=== PATIENT | male | born 1950 | race Caucasian/White ===

== ENCOUNTER 2022-05-10 11:48 | Inpatient (IN) ==
[2022-05-10 12:21] LABS: Basophils % 0.4 % (0.0-0.8); Eosinophils # 0.1 10*3/uL (0.0-0.87); Eosinophils % 1.2 % (0.00-10.9); Hematocrit 48.4 VOL% (42.0-52.0); Immature Granulocytes % 0.1 %; Immature Granulocytes Absolute 0.01 #; Lymphocytes # 1.6 10*3/uL (1.4-4.0); Lymphocytes % 21.7 % (21.2-54.2); Mean Corpuscular HGB Conc 33.1 GM/DL (32-36); Mean Corpuscular Volume 88.3 FL (87-102); Mean Platelet Volume 10.7 FL (9.6-12.0); Monocytes # 0.7 10*3/uL (0.11-0.8); Monocytes % 9.4 % (1.7-12.7); Neutrophils % 67.2 % (38.7-73.9); Platelet Count 207 T/CUMM (130-400); Red Blood Count 5.48 MC/CUMM (3.8-5.5); White Blood Count 7.2 T/CUMM (4-12)
[2022-05-10 13:02] LABS: Albumin 4.2 G/DL (3.4-5.0); Bilirubin,Total 0.8 MG/DL (0.20-1.00); Calcium 9.1 MG/DL (8.5-10.1); Osmolality,Calculated 283.3 MOS/KG (273-304); Potassium 4.1 MMOL/L (3.5-5.1); Total Protein 6.9 G/DL (6.4-8.2)
[2022-05-10] MEDS ORDERED: ENOXAPARIN 80 MG/0.8 ML SYRINGE SUBCUT STA (14:23)
[2022-05-10] MEDS ORDERED: ASPIRIN CHEW 81 MG TABLET PO STA (15:14)
[2022-05-10] MEDS ORDERED: MORPHINE 2 MG/1 ML SYRINGE IV PRN (15:15)
[2022-05-10] MEDS ORDERED: NITROGLYCERIN SL 0.4 MG TABLET SL PRN (15:15)
[2022-05-10] MEDS ORDERED: ASPIRIN 325 MG TABLET ONE (15:15)
[2022-05-10] MEDS ORDERED: DEXTROSE 10% 250 ML BAG IV PRN (15:15)
[2022-05-10] MEDS ORDERED: GLUCAGON 1 MG VIAL IM PRN (15:15)
[2022-05-10] MEDS ORDERED: ACETAMINOPHEN 325 MG TABLET PO PRN (15:15)
[2022-05-10] MEDS ORDERED: LACTATED RINGERS 1,000 ML IV SCH (15:30)
[2022-05-10] MEDS ORDERED: METOPROLOL TARTRATE 25 MG TABLET PO STA (16:19)
[2022-05-10] MEDS ORDERED: DIAZEPAM 5 MG TABLET PO ONE ×2 (16:20→20:00)
[2022-05-10] MEDS ORDERED: diphenhydrAMINE CAP 50 MG CAPSULE PO ONE (16:20)
[2022-05-10] MEDS ORDERED: MAGNESIUM SULF RIDER 2 GM/50 ML PREMIX IV PRN (16:20)
[2022-05-10] MEDS ORDERED: POTASSIUM CHLORIDE RIDER 10 MEQ/100 ML PREMIX IV PRN (16:20)
[2022-05-10] MEDS ORDERED: ROSUVASTATIN 20 MG TABLET PO SCH (16:30)
[2022-05-10 16:47] LABS: Barbiturates Screen,Urine Negative (Negative); Benzodiazepines Screen,Urine Negative (Negative); Cannabinoid Screen,Urine Negative (Negative); Opiate Screen,Urine Negative (Negative); Phencyclidine Screen,Urine Negative (Negative)
[2022-05-10] MEDS: SODIUM CHLORIDE 0.9% 1,000 ML IV SCH (17:04)
[2022-05-10 19:50] VITALS: BP 138/73
[2022-05-10] MEDS ORDERED: diphenhydrAMINE CAP 25 MG CAPSULE PO ONE (20:00)
[2022-05-10] MEDS ORDERED: fentaNYL 100 MCG/2 ML VIAL ONE (20:33)
[2022-05-10] MEDS ORDERED: MIDAZOLAM 2 MG/2 ML VIAL ONE ×2 (20:33→21:04)
[2022-05-10] MEDS ORDERED: VERAPAMIL 5 MG/2 ML VIAL ONE (20:35)
[2022-05-10] MEDS ORDERED: HEPARIN/NACL 0.9% 2 UNITS/ML 2,000 UNIT/1,000 ML BAG IV ONE (20:35)
[2022-05-10] MEDS ORDERED: NITROGLYCERIN DRIP 50 MG/250 ML BOTTLE IV ONE (20:35)
[2022-05-10] MEDS ORDERED: ZALEPLON 5 MG CAPSULE PO PRN (21:30)
[2022-05-10] MEDS ORDERED: ONDANSETRON 4 MG/2 ML VIAL IV PRN (21:30)
[2022-05-10] MEDS: METOPROLOL TARTRATE 25 MG TABLET PO SCH (22:16)
[2022-05-11] MEDS: ENOXAPARIN 100 MG/ML SYRINGE SUBCUT SCH ×2 (02:33→14:24)
[2022-05-11 03:49] LABS: Basophils % 0.5 % (0.0-0.8); Eosinophils # 0.1 10*3/uL (0.0-0.87); Hematocrit 47.4 VOL% (42.0-52.0); Hemoglobin 15.6 GM/DL (14.0-18.0); Immature Granulocytes % 0.3 %; Immature Granulocytes Absolute 0.02 #; Lymphocytes # 1.9 10*3/uL (1.4-4.0); Lymphocytes % 31.6 % (21.2-54.2); Mean Corpuscular HGB Conc 32.9 GM/DL (32-36); Mean Corpuscular Volume 87.8 FL (87-102); Mean Platelet Volume 10.9 FL (9.6-12.0); Monocytes # 0.6 10*3/uL (0.11-0.8); Monocytes % 9.6 % (1.7-12.7); Platelet Count 174 T/CUMM (130-400)
[2022-05-11 04:08] LABS: Calcium 8.3 MG/DL (8.5-10.1); Osmolality,Calculated 283.1 MOS/KG (273-304); Potassium 4.2 MMOL/L (3.5-5.1)
[2022-05-11 04:13] LABS: Risk Ratio 3.48; VLDL Cholesterol 26.4 MG/DL
[2022-05-11] MEDS: SODIUM CHLORIDE 0.9% 1,000 ML IV SCH ×2 (07:43→10:23)
[2022-05-11] MEDS ORDERED: ASPIRIN EC 81 MG TABLET PO SCH (09:00)
[2022-05-11] MEDS ORDERED: LOSARTAN 50 MG TABLET PO SCH (09:00)
[2022-05-11] MEDS ORDERED: PANTOPRAZOLE 40 MG TABLET PO SCH (09:00)
[2022-05-11] MEDS: METOPROLOL TARTRATE 25 MG TABLET PO SCH (09:27)
== END 2022-05-11 14:30 | disposition hospice, home (50) | DRG 282 ==
LOC: N.EDINP 11:48 → N.ED 11:48 → N.3E 15:58 → N.ICU 22:04
PROVIDERS: ADMIT Internal Medicine; ATTEND Internal Medicine